=== PATIENT | male | born 1940 | race Caucasian/White ===

== ENCOUNTER → 2016-07-20 | Outpatient (REF) | LOC: ZLAB.WCH 11:26 | DX: Z01.89 Encounter for other specified special examinations (principal) ==

== ENCOUNTER → 2016-07-20 | Outpatient (REF) | LOC: ZLAB.WCH 15:25 | DX: Z01.89 Encounter for other specified special examinations (principal) ==

== ENCOUNTER → 2016-07-20 | Outpatient (REF) | LOC: ZLAB.WCH 11:33 | DX: Z01.89 Encounter for other specified special examinations (principal) ==

== ENCOUNTER → 2016-11-03 | Outpatient (REF) | LOC: ZLAB.WCH 18:20 | DX: Z01.89 Encounter for other specified special examinations (principal) ==

== ENCOUNTER → 2018-11-24 | Outpatient (REF) | LOC: ZLAB.WCH 12:48 | DX: Z01.89 Encounter for other specified special examinations (principal) ==